=== PATIENT | female | born 1980 | race Caucasian/White ===

== ENCOUNTER 2018-06-13 11:50 | Emergency (ER) | payer OTHER ==
[2018-06-13 12:16] VITALS: BP 130/90
[2018-06-13] MEDS ORDERED: Tetan/Diph/Pertus SYR(Tdap)* 0.5 ML SYR(BOOSTRIX) use SYR IM ONE (13:01)
[2018-06-13] MEDS ORDERED: Lidocaine 1%* 5 ML VIAL INJ ONE (13:01)
--- NOTE | 2018-06-13 13:08 | UC ---
Skin Complaint HPI - HPI Summary HPI Summary: 38-year-old woman comes in with a chief complaint of laceration to the left index finger. He was at work and while cleaning the floor she cut the finger on a piece of metal. She had a hard time stopping the bleeding but she eventually did stop the bleeding with direct pressure. She cleaned the wound herself and it was cleaned again here upon arrival to the clinic. She is not up -to-date on her tetanus shots. No numbness. - History of Current Complaint Chief Complaint: UCLaceration Time Seen by Provider: 06/13/18 12:57 Stated Complaint: 1ST FINGER/LFT HAND LACERATION-WC Hx Last Menstrual Period: unknown, MIrena Pain Intensity: 2 - Allergy/Home Medications Allergies/Adverse Reactions: Allergies Allergy/AdvReac Type Severity Reaction Status Date / Time nitrofurantoin Allergy Rash Verified 06/13/18 12:13 [From Macrobid] Sulfa (Sulfonamide Allergy Rash Verified 06/13/18 12:13 Antibiotics) Home Medications: Home Medications NK [No Home Medications Reported] 06/13/18 [History Confirmed 06/13/18] PMH/Surg Hx/FS Hx/Imm Hx Previously Healthy: Yes - Surgical History Surgical History: Yes Surgery Procedure, Year, and Place: neck fusion. - Family History Known Family History: Positive: Non-Contributory - Social History Alcohol Use: Occasionally Substance Use Type: None Smoking Status (MU): Light Every Day Tobacco Smoker Type: Cigarettes Amount Used/How Often: 10 per day - Immunization History Most Recent Tetanus Shot: unknown Review of Systems All Other Systems Reviewed And Are Negative: Yes Constitutional: Positive: Negative Skin: Positive: Other - SEE HPI Eyes: Positive: Negative ENT: Positive: Negative Respiratory: Positive: Negative Cardiovascular: Positive: Negative Gastrointestinal: Positive: Negative Motor: Positive: Negative Neurovascular: Positive: Negative Musculoskeletal: Positive: Negative Neurological: Positive: Negative Psychological: Positive: Negative Is Patient Immunocompromised?: No Physical Exam Triage Information Reviewed: Yes Appearance: Well-Appearing, No Pain Distress, Well-Nourished Vital Signs: Initial Vital Signs Temp 97.7 F 06/13/18 12:11 Pulse 73 06/13/18 12:11 Resp 16 06/13/18 12:11 BP 130/90 06/13/18 12:11 Pulse Ox 100 06/13/18 12:11 Vital Signs Reviewed: Yes Eye Exam: Normal Eyes: Positive: Conjunctiva Clear Neck exam: Normal Neck: Positive: Supple Respiratory: Positive: No respiratory distress Musculoskeletal Exam: Normal Musculoskeletal: Positive: Strength Intact, ROM Intact Neurological Exam: Normal Neurological: Positive: Alert, Muscle Tone Normal Psychological Exam: Normal Psychological: Positive: Age Appropriate Behavior Skin: Positive: Other - 12MM SC LACERATION PAD OF LEFT INDEX FINGER. NORMAL CAPILLARY REFILL. NORMAL SENSATION DEFICIT. Laceration Repair - Laceration Repair 1 Procedure Summary: PAD OF LEFT DISTAL INDEX FINGER Description: Linear Laceration Size After Repair: Length (cm) - 1.2, Depth (mm) - SC Modified For Repair: Yes Type Injection: Local Anesthesia Used: 1.0% Lido Cleansing Completed Via Routine Prep: Yes Irrigation With Pressure Irrigation Device: No Closure Material: Sutures Closure Method: Single Layer Suture Of: Skin Suture Type: Prolene - #3 OF 5-0 PROLENE Course/Dx - Course Course Of Treatment: TDAP GIVEN IN CLINIC - Diagnoses Provider Diagnosis: Laceration of left index finger Discharge - Sign-Out/Discharge Documenting (check all that apply): Patient Departure All imaging exams completed and their final reports reviewed: No Studies - Discharge Plan Condition: Stable Disposition: HOME Patient Education Materials: Finger Laceration (ED) Referrals: [facility] [Outside] Additional Instructions: FOLLOW UP WITH YOUR DOCTOR IF NOT COMPLETELY IMPROVED. SUTURES OUT IN 8-10 DAYS. GET RECHECKED FOR ANY WORSENING OF YOUR CONDITION; PAIN, INFECTION OR QUESTIONS OR CONCERNS. - Billing Disposition and Condition Condition: STABLE Disposition: Home
== END 2018-06-13 13:47 | disposition home or self-care (01) ==
LOC: UCCORT 11:50
DX: S61.211A Laceration without foreign body of left index finger without damage to nail, initial encounter (principal); F17.210 Nicotine dependence, cigarettes, uncomplicated; Z88.1 Allergy status to other antibiotic agents; Z88.2 Allergy status to sulfonamides; Z23 Encounter for immunization; W45.8XXA Other foreign body or object entering through skin, initial encounter; Y92.9 Unspecified place or not applicable
CPT/HCPCS: 12001; 90471; 90715; 99201; G0463